=== PATIENT | male | born 1985 | race African-American/Black ===

== ENCOUNTER 2018-12-22 02:15 | Emergency (ER) | payer SELFPAY, OTHER | END 2018-12-22 05:50 | disposition home or self-care (01) | LOC: JER 02:15 ==

== ENCOUNTER 2022-11-12 12:49 | Emergency (ER) | payer OTHER ==
[2022-11-12 12:56] VITALS: BP 109/68; PULSE 74; RESP 18; TEMP 98.4; BMI 29.0
[2022-11-12] MEDS ORDERED: BACITRACIN ZINC 15 GM TUBE TOPICAL OINTMENT ONE (14:58)
== END 2022-11-12 15:02 | disposition home or self-care (01) ==
LOC: JERFT 12:49
DX: L76.22 Postprocedural hemorrhage of skin and subcutaneous tissue following other procedure (principal)
CPT/HCPCS: 99283-25